=== PATIENT | female | born 1945 | race Two or more races ===

== ENCOUNTER → 2019-05-13 | Emergency (ER) | payer OTHER, MEDICAID ==
[~2019-05-13] VITALS: Ht 160 cm; Wt 59.0 kg
[2019-05-13 17:47] LABS: Basophils # (auto) 0.1 10 ^3/uL (0-0.2); Basophils % (auto) 1.6 % (0.0-2.0); Eosinophils # (auto) 0.1 10 ^3/uL (0-0.8); Eosinophils % (auto) 3.5 % (0.0-7.0); Hematocrit 29.3 % (36.0-46.0); Hemoglobin 10.3 g/dL (12.2-16.2); Lymphocytes % (auto) 23.9 % (10.0-50.0); Mean Corpuscular Hemoglobin 33.2 pg (28.0-32.0); Mean Corpuscular Volume 94.8 fL (80.0-100.0); Monocytes # (auto) 0.6 10 ^3/uL (0-1.3); Monocytes % (auto) 15.9 % (0.0-12.0); Neutrophils # (auto) 2.2 10 ^3/uL (1.6-8.6); Neutrophils % (auto) 55.1 % (37.0-80.0); Nucleated Red Blood Cells % 0.1 %; Platelet Count (auto) 135 10^3/uL (140-450); Red Blood Cells 3.09 10^6/uL (4.0-5.20); Red Cell Distribution Width 14.3 % (11.8-14.3)
[2019-05-13 18:09] LABS: Albumin 2.6 g/dL (3.4-5.0)
[2019-05-13 18:14] LABS: BUN/Creatinine Ratio 19.8; Bilirubin, Total 0.9 mg/dL (0.2-1.0)
[2019-05-13 18:41] LABS: Magnesium 2.2 mg/dL (1.6-2.6)
[2019-05-13 18:45] LABS: INR 1.23 (0.9-1.15)
[2019-05-13 19:30] VITALS: BP 132/53
== END | disposition home or self-care (01) ==
LOC: ER 15:44
DX: E11.9 Type 2 diabetes mellitus without complications (principal); D64.9 Anemia, unspecified; E78.5 Hyperlipidemia, unspecified; I10 Essential (primary) hypertension; E07.9 Disorder of thyroid, unspecified
CPT/HCPCS: 36415; 71045; 80053; 82962; 83690; 83735; 85025; 85610; 85730

== ENCOUNTER 2020-02-04 13:13 | Inpatient (IN) | payer OTHER, MEDICAID ==
[~2020-02-04] VITALS: Ht 172.7 cm; Wt 68.5 kg
[2020-02-04 14:39] LABS: Basophils # (auto) 0 10 ^3/uL (0-0.2); Basophils % (auto) 0.2 % (0.0-2.0); Eosinophils # (auto) 0 10 ^3/uL (0-0.8); Hematocrit 34.1 % (36.0-46.0); Hemoglobin 11.5 g/dL (12.2-16.2); Lymphocytes # (auto) 2.1 10 ^3/uL (0.4-5.4); Mean Corpuscular Hemoglobin 30.6 pg (28.0-32.0); Mean Corpuscular Hgb Conc. 33.8 g/dL (32.0-36.0); Mean Corpuscular Volume 90.7 fL (80.0-100.0); Monocytes % (auto) 8.7 % (0.0-12.0); Neutrophils # (auto) 8.6 10 ^3/uL (1.6-8.6); Neutrophils % (auto) 73.1 % (37.0-80.0); Nucleated Red Blood Cells % 0.2 %; Platelet Count (auto) 114 10^3/uL (140-450); Red Blood Cells 3.76 10^6/uL (4.0-5.20); Red Cell Distribution Width 15.1 % (11.8-14.3); White Blood Cell 11.8 10^3/uL (4.4-10.8)
[2020-02-04 14:48] LABS: Albumin 1.9 g/dL (3.4-5.0); BUN/Creatinine Ratio 14.9; Calcium 7.3 mg/dL (8.5-10.1); Magnesium 2.4 mg/dL (1.6-2.6)
[2020-02-04 14:52] LABS: Bilirubin, Total 2.6 mg/dL (0.2-1.0); Total Protein 6.3 g/dL (6.4-8.2)
[2020-02-04 14:58] LABS: INR 1.38 (0.9-1.15); Partial Thromboplastin Time 30.2 sec (23.0-31.2)
[2020-02-04] MEDS ORDERED: LACTULOSE 10g/15ml SOLN PR ONE (18:00)
[2020-02-04 18:38] LABS: Urine Bacteria NONE SEEN /hpf (None Seen); Urine Blood 1+ /uL (Negative); Urine Hyaline Cast FEW /lpf (0 - 2); Urine Specific Gravity 1.011 (1.001-1.035); Urine WBC 1 /hpf (0 - 5)
[2020-02-04] MEDS ORDERED: NITROGLYCERIN 0.4 MG SL TAB SL PRN (18:45)
[2020-02-04] MEDS ORDERED: MORPHINE SULF INJ 2 MG/ML SYRINGE 1ML IV PRN (18:45)
[2020-02-04] MEDS ORDERED: DEXTROSE (50%) 50ML SYRG IV PRN (19:00)
[2020-02-04] MEDS ORDERED: cefTRIAXone 1GM/50ML D5W 50 ML IV ONE (19:00)
[2020-02-04] MEDS ORDERED: ONDANSETRON HCL 4 MG/2 ML VIAL IV PRN (19:00)
[2020-02-04] MEDS ORDERED: FAMOTIDINE (10MG/ML) 2ML VL IV SCH (19:00)
[2020-02-04] MEDS: SODIUM CHLORIDE 0.9% 1,000 ML IV SCH (19:42)
[2020-02-04 19:49] LABS: Amylase 70 U/L (25-115); Lipase 232 U/L (73-393)
[2020-02-04] MEDS: InsuLIN REG 1unit/0.01ml Soln (100units/ml) SC SCH (22:00)
[2020-02-04] MEDS: ACCU-CHEK COMFORT CURVE STRIP VI SCH (22:01)
[2020-02-04] MEDS: FAMOTIDINE (10MG/ML) 2ML VL IV SCH (22:02)
[2020-02-05] MEDS: SODIUM CHLORIDE 0.9% 1,000 ML IV SCH ×2 (05:00→15:12)
[2020-02-05 05:38] LABS: Basophils # (auto) 0.1 10 ^3/uL (0-0.2); Basophils % (auto) 0.7 % (0.0-2.0); Eosinophils # (auto) 0 10 ^3/uL (0-0.8); Eosinophils % (auto) 0.1 % (0.0-7.0); Hematocrit 33.7 % (36.0-46.0); Hemoglobin 11.2 g/dL (12.2-16.2); Lymphocytes # (auto) 2.8 10 ^3/uL (0.4-5.4); Lymphocytes % (auto) 18.2 % (10.0-50.0); Mean Corpuscular Hemoglobin 30.3 pg (28.0-32.0); Mean Corpuscular Hgb Conc. 33.2 g/dL (32.0-36.0); Mean Corpuscular Volume 91.3 fL (80.0-100.0); Monocytes # (auto) 1.3 10 ^3/uL (0-1.3); Monocytes % (auto) 8.3 % (0.0-12.0); Neutrophils % (auto) 72.7 % (37.0-80.0); Nucleated Red Blood Cells % 0.2 %; Platelet Count (auto) 114 10^3/uL (140-450); Red Blood Cells 3.69 10^6/uL (4.0-5.20); Red Cell Distribution Width 15.1 % (11.8-14.3); White Blood Cell 15.2 10^3/uL (4.4-10.8)
[2020-02-05] MEDS: LACTULOSE 20Gm/30ML SOLN NG SCH ×5 (05:43→23:22)
[2020-02-05 05:56] LABS: Albumin 1.6 g/dL (3.4-5.0); Calcium 7.2 mg/dL (8.5-10.1)
[2020-02-05 06:03] LABS: BUN/Creatinine Ratio 18.3; Bilirubin, Total 2.4 mg/dL (0.2-1.0); Total Protein 5.5 g/dL (6.4-8.2)
[2020-02-05] MEDS: ACCU-CHEK COMFORT CURVE STRIP VI SCH ×4 (06:34→22:26)
[2020-02-05] MEDS: InsuLIN REG 1unit/0.01ml Soln (100units/ml) SC SCH ×5 (06:35→22:00)
[2020-02-05] MEDS: ASPirin 81 mg TAB PO SCH (10:00)
[2020-02-05 10:06] LABS: Alcohol, Urine < 3.0 mg/dL (0-10); Amphetamine Screen, Urine NEGATIVE (NEGATIVE); Barbiturate Scree,Urine NEGATIVE (NEGATIVE); Benzodiazephine Screen, Urine NEGATIVE (NEGATIVE); Cannabinoid Screen, Urine NEGATIVE (NEGATIVE); Cocaine Screen, Urine NEGATIVE (NEGATIVE); Opiate Scree,Urine NEGATIVE (NEGATIVE); Phencyclidine Screen, Urine NEGATIVE (NEGATIVE)
[2020-02-05 11:13] LABS: Cholesterol 107 mg/dL (< 200)
[2020-02-05 11:16] LABS: HDL Cholesterol 18 mg/dL (40-59); LDL Cholesterol 66 mg/dL (< 100); Triglycerides 89 mg/dL (< 150)
[2020-02-05] MEDS: cefTRIAXone 1GM/50ML D5W 50 ML IV SCH (21:00)
[2020-02-05] MEDS: FAMOTIDINE (10MG/ML) 2ML VL IV SCH (22:00)
[2020-02-05] MEDS: rifAXIMin 550 MG TAB PO SCH (22:00)
[2020-02-06] MEDS: SODIUM CHLORIDE 0.9% 1,000 ML IV SCH ×3 (01:07→22:08)
[2020-02-06] MEDS: LACTULOSE 20Gm/30ML SOLN NG SCH ×4 (06:00→23:22)
[2020-02-06] MEDS: InsuLIN REG 1unit/0.01ml Soln (100units/ml) SC SCH ×4 (10:19→22:00)
[2020-02-06] MEDS: rifAXIMin 550 MG TAB PO SCH ×2 (10:23→22:43)
[2020-02-06] MEDS: ASPirin 81 mg TAB PO SCH (10:23)
[2020-02-06] MEDS: ACCU-CHEK COMFORT CURVE STRIP VI SCH ×4 (10:23→22:10)
--- NOTE | 2020-02-06 15:30 | NUR ---
MS admit from ER JONY BEARD admitted to tele/MS after SBAR received from CHALO Brunson. Patient oriented to LETTY SALINAS RN primary RN, unit, room, bed, and unit policies regarding patient care and visiting hours. Patient weighed by bedscale and encouraged to call if they need something. Patient alert to self only, history received from Daughter Jerri via telephone. NGT in place left nare for medication purposes, wilde in place and free of kinks, hung to gravity, clear janie urine noted. Bed in low locked position, call light within reach, side rails up times two. Will continue to monitor.
[2020-02-06 16:00] VITALS: BP 106/53
[2020-02-06] MEDS ORDERED: LISI-648 PO (18:49)
[2020-02-06] MEDS ORDERED: LEVO100I IV (18:49)
[2020-02-06] MEDS ORDERED: INSU75IN2 SC (18:49)
[2020-02-06] MEDS ORDERED: LACT10SO3 PO (18:49)
[2020-02-06] MEDS ORDERED: FURO20TA3 PO (18:49)
[2020-02-06] MEDS ORDERED: DONE10TA40 PO (18:49)
--- NOTE | 2020-02-06 19:55 | NUR ---
Opening Shift Note Assumed care of patient, patient open eyes to light stimuli, oriented to self. On room air with even and unlabored respirations. No S/S of distress/SOB. left NGT intact. Sanchez intact and draining to gravity. Bed in low locked position with side rails up x 2 and call light within reach, bed alarm on. Instructed on POC and to call for assist PRN, will continue to monitor for changes Q1hr and PRN.
[2020-02-06 22:00] VITALS: BP 104/79
[2020-02-06] MEDS: cefTRIAXone 1GM/50ML D5W 50 ML IV SCH (22:08)
[2020-02-06] MEDS: FAMOTIDINE (10MG/ML) 2ML VL IV SCH (22:08)
[2020-02-06] MEDS: MORPHINE SULF INJ 2 MG/ML SYRINGE 1ML IV PRN (22:44)
[2020-02-07 05:00] VITALS: BP 115/65
[2020-02-07 06:22] LABS: Basophils # (auto) 0 10 ^3/uL (0-0.2); Basophils % (auto) 0.4 % (0.0-2.0); Eosinophils # (auto) 0 10 ^3/uL (0-0.8); Eosinophils % (auto) 0.5 % (0.0-7.0); Hematocrit 27.3 % (36.0-46.0); Lymphocytes # (auto) 1.2 10 ^3/uL (0.4-5.4); Lymphocytes % (auto) 14.9 % (10.0-50.0); Mean Corpuscular Hemoglobin 30.7 pg (28.0-32.0); Mean Corpuscular Volume 93.1 fL (80.0-100.0); Monocytes # (auto) 0.8 10 ^3/uL (0-1.3); Monocytes % (auto) 9.5 % (0.0-12.0); Neutrophils # (auto) 6.2 10 ^3/uL (1.6-8.6); Neutrophils % (auto) 74.7 % (37.0-80.0); Nucleated Red Blood Cells % 0.1 %; Platelet Count (auto) 116 10^3/uL (140-450); Red Blood Cells 2.94 10^6/uL (4.0-5.20); Red Cell Distribution Width 16.7 % (11.8-14.3); White Blood Cell 8.3 10^3/uL (4.4-10.8)
[2020-02-07 06:27] LABS: Potassium 3.9 mmol/L (3.5-5.1)
[2020-02-07 06:32] LABS: Albumin 1.5 g/dL (3.4-5.0); BUN/Creatinine Ratio 23.2; Bilirubin, Total 2.1 mg/dL (0.2-1.0); Calcium 7.2 mg/dL (8.5-10.1)
[2020-02-07] MEDS: ACCU-CHEK COMFORT CURVE STRIP VI SCH ×4 (06:37→21:32)
[2020-02-07] MEDS: InsuLIN REG 1unit/0.01ml Soln (100units/ml) SC SCH ×4 (06:38→22:00)
[2020-02-07] MEDS: LACTULOSE 20Gm/30ML SOLN NG SCH ×3 (06:39→17:50)
[2020-02-07] MEDS: SODIUM CHLORIDE 0.9% 1,000 ML IV SCH ×2 (07:00→15:45)
--- NOTE | 2020-02-07 07:00 | NUR ---
Closing Note patient resting with eyes closed, room air, no s/s of distress. ngt secured and intact. IVF infusing per orders. bed low locked position with siderails up x 2 and call light within reach.
--- NOTE | 2020-02-07 07:20 | NUR ---
OPENING SHIFT NOTE Assumed care of patient from mason liner RN. Patient is alert and oriented x1, repeating her name, She was oriented to place time and situation. She was also updated on the plan of care and verbalized understanding. Bed is locked, in the lowest position, side rails up x2 and call light is in reach. She was encouraged to call for assistance. Will round q1h and prn.
--- NOTE | 2020-02-07 07:30 | NUR ---
Endorsed care to tolu ISABEL.
[2020-02-07 09:00] VITALS: BP 112/48
--- NOTE | 2020-02-07 10:04 | NUR ---
STEPHEN AT BEDSIDE updated on the patient status, plan of care was discussed. Per MD he will place neuro consult for patient ALOC.
[2020-02-07] MEDS: rifAXIMin 550 MG TAB PO SCH ×2 (10:21→23:11)
[2020-02-07] MEDS: ASPirin 81 mg TAB PO SCH (10:21)
--- NOTE | 2020-02-07 12:24 | NUR ---
CALL FROM FAMILY after verification of password, daughter was updated on the plan of care and the patient status and she verbalized understanding. All questions answered.
[2020-02-07 13:00] VITALS: BP 102/57
--- NOTE | 2020-02-07 13:53 | NUR ---
Assessment Patient is a 74 year old female, who is alert and oriented. Patient was unable to participate in assessment. SW contacted daughter for initial assessment. Per daughter Jerri ([phone]), prior to being admitted to [facility], patient is alert and oriented. Per Jerri, patient cognitive abilities are intact. Per Jerri, patient need assistance with all ADL's and ambulate with a walker. Per [place], patient is retired and receives social security benefits as income. Per Jerri, patient is a diabetic. Per Jerri, patient has Advance Directive forms filed at [facility]. Per Jerri, she is requesting bedside commode for patient post discharge. Discharge Planning: Patient would benefit from DME supply of bedside commode. Patient will return home post discharge, patient will follow up care with PCP post discharge. Patient will resume home care for diabetes, patient has all diabetic supplies for home care post discharge. There are Addendum: 02/07/20 at 1401 by KAREN [place] Amended: Links added.
[2020-02-07] MEDS: MORPHINE SULF INJ 2 MG/ML SYRINGE 1ML IV PRN (16:38)
[2020-02-07 17:00] VITALS: BP 125/57
--- NOTE | 2020-02-07 17:48 | NUR ---
CALL FROM FAMILY after verification of password, daughter was updated on the plan of care and the patient status and she verbalized understanding. All questions answered.
--- NOTE | 2020-02-07 19:50 | NUR ---
Opening Shift Note Assumed care of patient,patient oriented to self and place. On room air with even and unlabored respirations. No S/S of distress/SOB. left NGT intact. Sanchez intact and draining to gravity. Bed in low locked position with side rails up x 2 and call light within reach, bed alarm on. Instructed on POC and to call for assist PRN, will continue to monitor for changes Q1hr and PRN.
--- NOTE | 2020-02-07 21:05 | NUR ---
Large BM patient had large loose brown liquid bowel movement. Cleaned patient and full linen change.
[2020-02-07 22:03] VITALS: BP 119/71
--- NOTE | 2020-02-07 22:15 | NUR ---
Unsuccessful IV start x 2 will have secondary RN attempt.
--- NOTE | 2020-02-07 23:10 | NUR ---
Unsuccessful IV start x 2 secondary RN attempted IV insertion, unsuccessful. grass farmer Rose will attempt.
--- NOTE | 2020-02-07 23:45 | NUR ---
IV insertion IV access obtained, via clean sterile technique by inserting 22 gauge catheter at right FA after 2 attempt(s). IV secured properly. No trauma to site. Patient tolerated well. NOTE:
[2020-02-07] MEDS: cefTRIAXone 1GM/50ML D5W 50 ML IV SCH (23:48)
[2020-02-07] MEDS: FAMOTIDINE (10MG/ML) 2ML VL IV SCH (23:48)
[2020-02-08] MEDS: LACTULOSE 20Gm/30ML SOLN NG SCH ×5 (00:03→23:16)
[2020-02-08] MEDS: MORPHINE SULF INJ 2 MG/ML SYRINGE 1ML IV PRN ×3 (00:05→22:56)
--- NOTE | 2020-02-08 00:20 | NUR ---
Large BM patient had large loose brown liquid bowel movement. Cleaned patient and full linen change.
[2020-02-08] MEDS: SODIUM CHLORIDE 0.9% 1,000 ML IV SCH ×3 (04:33→23:00)
--- NOTE | 2020-02-08 05:30 | NUR ---
Large BM patient had large loose brown liquid bowel movement. Cleaned patient, barrier cream applied and full linen change.
[2020-02-08 05:43] VITALS: BP 126/72
[2020-02-08] MEDS: ACCU-CHEK COMFORT CURVE STRIP VI SCH ×4 (06:04→21:21)
[2020-02-08] MEDS: InsuLIN REG 1unit/0.01ml Soln (100units/ml) SC SCH ×4 (06:05→21:24)
--- NOTE | 2020-02-08 07:00 | NUR ---
Closing Note patient resting with eyes closed, room air, no s/s of distress. ngt secured and intact. IVF infusing per orders. bed low locked position with side rails up x 2 and call light within reach.
[2020-02-08 08:33] VITALS: BP 133/65
[2020-02-08] MEDS: ASPirin 81 mg TAB PO SCH (10:05)
[2020-02-08] MEDS: rifAXIMin 550 MG TAB PO SCH ×2 (10:05→21:21)
[2020-02-08 11:53] LABS: Albumin 1.7 g/dL (3.4-5.0); Calcium 7.5 mg/dL (8.5-10.1); Potassium 3.3 mmol/L (3.5-5.1)
[2020-02-08 11:57] LABS: BUN/Creatinine Ratio 20.9; Bilirubin, Total 2.6 mg/dL (0.2-1.0); Total Protein 5.8 g/dL (6.4-8.2)
[2020-02-08 12:33] VITALS: BP 125/63
--- NOTE | 2020-02-08 13:23 | NUR ---
PT OOB TO CHAIR WITH PHYSICAL THERAPY. ALERT TO SELF ONLY. DAUGHTER ALESIA CALLED FACILITY REGARDING ANGIOGRAM FOR PT. KRYS MARIA, CENTER HOLE REAMER AWARE, STATED SHE WILL CALL ALESIA.
--- NOTE | 2020-02-08 14:33 | NUR ---
Nutrition Assessment Note Please see attached link for complete assessment Est energy needs BW 63 [id number] kcal (25-30 kcal/kg BW) Est protein needs 38-50 g (0.6-0.8 g/kg BW r/t elev ammonia elev RFT hypoalb) Will monitor and reassess prn. Addendum: 02/08/20 at [address] Amended: Links added.
[2020-02-08] MEDS ORDERED: POTASSIUM CHLORIDE 40 MEQ, LIDOCAINE 1% (LOCAL ANESTH.) 4 ML in SODIUM CHL 0.9% 250 ML IV ONE (16:00)
[2020-02-08 16:30] VITALS: BP 120/50
--- NOTE | 2020-02-08 18:45 | NUR ---
PT DAUGHTER ALESIA GAVE TELEPHONE CONSENT FOR LEFT HEART CATH TOMORROW 02/09/2020. MYSELF AND RN MONTY DEE HEARD AND SIGNED CONSENT.
--- NOTE | 2020-02-08 19:30 | NUR ---
Opening Shift Note Assumed care of patient, AOX2. No S/S of distress/SOB or pain. Fall and safety precautions in place. Call light within reach. NG tube to left nare at 59 cm. Instructed on POC and to call for assist PRN, patient verbalized understanding and in agreement. Will continue to monitor for changes Q1hr and PRN.
[2020-02-08] MEDS: cefTRIAXone 1GM/50ML D5W 50 ML IV SCH (21:20)
[2020-02-08] MEDS: FAMOTIDINE (10MG/ML) 2ML VL IV SCH (21:21)
--- NOTE | 2020-02-08 21:54 | NUR ---
ON-CALL HOSP PAGED - NG PULLED UPON PATIENT ROUNDS, PATIENT IS FOUND WITH NG TUBE COMPLETELY REMOVED FROM PATIENT (LINE FULLY INTACT). NO APPARENT/REPORTED TRAUMA TO PATIENT. PATIENT STATES REMOVAL WAS AN ACCIDENT. ON-CALL HOSP PAGED. AWAITING CALL BACK. WILL CONTINUE TO MONITOR.
[2020-02-08 22:00] VITALS: BP 102/72
--- NOTE | 2020-02-08 23:19 | NUR ---
PAGED HOSP - SECOND ATTEMPT ON-CALL HOSP PAGED AGAIN AT THIS TIME. AWAITING CALL BACK. WILL CONTINUE TO MONITOR.
--- NOTE | 2020-02-08 23:28 | NUR ---
ON-CALL HOSP CALL BACK ON-CALL HOSP CALLS BACK AT THIS TIME. UPDATED BACTERIOLOGY TEACHER ON PATIENT STATUS. NEW ORDERS RECEIVED, READ BACK AND VERIFIED (SEE NEW ORDERS). ADDITIONAL NOTE ON COMMUNICATION ORDER: BACTERIOLOGY TEACHER STATED NOT TO REINSERT NG TUBE AT THIS TIME UNLESS INDICATED OR MORNING HOSPITALIST DECIDES TO ORDER NG REINSERTION. WILL CONTINUE TO MONITOR. Addendum: 02/08/20 at 2337 by MELINDA NICHOLE RN RN ADDITIONALLY, NOTIFIED BACTERIOLOGY TEACHER OF PATIENT'S REPORTED PAIN ON LEFT SIDE OF ABDOMEN.
[2020-02-09 05:00] VITALS: BP 129/69
--- NOTE | 2020-02-09 05:30 | NUR ---
CHG / COMPLETE LINEN CHANGE WITH PATIENT'S CONSENT AFTER EDUCATION/INDICATION FOR PROCEDURE, CHG BATH PERFORMED AT THIS TIME. KINSEY CARE PERFORMED. FULL LINEN CHANGED. PATIENT TOLERATED WELL. WILL CONTINUE TO MONITOR.
[2020-02-09] MEDS: LACTULOSE 20Gm/30ML SOLN PO SCH ×3 (05:50→17:47)
[2020-02-09] MEDS: SODIUM CHLORIDE 0.9% 1,000 ML IV SCH ×2 (06:00→17:39)
[2020-02-09] MEDS: ACCU-CHEK COMFORT CURVE STRIP VI SCH ×4 (06:00→23:10)
[2020-02-09] MEDS: InsuLIN REG 1unit/0.01ml Soln (100units/ml) SC SCH ×4 (06:02→23:11)
[2020-02-09 06:32] LABS: Basophils # (auto) 0 10 ^3/uL (0-0.2); Basophils % (auto) 0.2 % (0.0-2.0); Eosinophils # (auto) 0.1 10 ^3/uL (0-0.8); Eosinophils % (auto) 1.4 % (0.0-7.0); Hemoglobin 9.3 g/dL (12.2-16.2); Lymphocytes # (auto) 1.3 10 ^3/uL (0.4-5.4); Lymphocytes % (auto) 19.6 % (10.0-50.0); Mean Corpuscular Hemoglobin 31.2 pg (28.0-32.0); Mean Corpuscular Hgb Conc. 33.2 g/dL (32.0-36.0); Mean Corpuscular Volume 93.9 fL (80.0-100.0); Monocytes # (auto) 0.6 10 ^3/uL (0-1.3); Neutrophils # (auto) 4.6 10 ^3/uL (1.6-8.6); Neutrophils % (auto) 69.8 % (37.0-80.0); Nucleated Red Blood Cells % 0.2 %; Platelet Count (auto) 130 10^3/uL (140-450); Red Blood Cells 2.98 10^6/uL (4.0-5.20); Red Cell Distribution Width 17.5 % (11.8-14.3); White Blood Cell 6.6 10^3/uL (4.4-10.8)
[2020-02-09 06:41] LABS: Potassium 3.9 mmol/L (3.5-5.1)
[2020-02-09 06:44] LABS: INR 1.89 (0.9-1.15); Partial Thromboplastin Time 33.4 sec (23.0-31.2)
[2020-02-09 06:55] LABS: BUN/Creatinine Ratio 24.2; Calcium 7.9 mg/dL (8.5-10.1)
[2020-02-09 09:00] VITALS: BP 112/55
[2020-02-09] MEDS: ASPirin 81 mg TAB PO SCH (09:13)
[2020-02-09] MEDS: rifAXIMin 550 MG TAB PO SCH ×2 (09:14→23:10)
--- NOTE | 2020-02-09 10:45 | NUR ---
Patient transported to open hearth laborer by bed; chart with pt; report given to open hearth laborer RN.
--- NOTE | 2020-02-09 11:30 | NUR ---
Hold P.T. today. Patient went to laborer [facility].
[2020-02-09] MEDS ORDERED: LIDOCAINE 2%HCL (LOCAL ANESTH.) INJ 20ML MDV ONE (13:01)
[2020-02-09] MEDS ORDERED: IODIXANOL 320MG/ML 100ML BTL IV ONE ×2 (13:01→13:29)
[2020-02-09] MEDS ORDERED: MIDAZOLAM HCL 1MG/1ML-2 ML VIAL ONE (13:28)
[2020-02-09] MEDS ORDERED: HEPARIN SODIUM (PORCINE) 5000 UNITS/ML 1ML VIAL ONE (13:28)
[2020-02-09] MEDS ORDERED: ANGIOMAX 250 MG VIAL IV ONE (13:28)
[2020-02-09] MEDS ORDERED: SODIUM CHL 0.9% 0 ML ONE (13:28)
[2020-02-09] MEDS ORDERED: fentaNYL CITRATE 100 MCG/2 ML VL ONE (13:28)
[2020-02-09] MEDS ORDERED: VERAPAMIL 2.5MG/ML INJ 2ML VIAL IV ONE (13:28)
--- NOTE | 2020-02-09 14:20 | NUR ---
Pt. received in Pattern Wheel Maker Post-Op awake but drowsy, awakens easily and is oriented to person, place and event. Respirations even and unlabored. RIGHT groin soft with no hematoma or bleeding noted, dressing is CDI. Moves all extremities spontaneously but keeps RIGHT and LEFT legs straight, as instructed. Bilat. pedal pulses palpable @ DP and PT. NDS lock IV to RIGHT AC intact; site benign. Pt. instructed re: procedure outcome and plan of care; verbalized understanding and is compliant. Currently denies discomfort, NAD noted.
--- NOTE | 2020-02-09 14:33 | NUR ---
Bilat. groin sites unchanged. Pt. asleep but arousable. Keeps legs straight as instructed. Addendum: 02/09/20 at 1525 by TOVA EDGAR RN RIGHT groin site (not bilateral).
--- NOTE | 2020-02-09 14:45 | NUR ---
Garrick. groin site dressings CDI with no hematomas noted. Bilateral pedal pulses unchanged. Addendum: 02/09/20 at 1525 by TOVA EDGAR RN RIGHT groin site (not bilateral).
--- NOTE | 2020-02-09 15:06 | NUR ---
Pt. asleep with even and deep respirations. Bilat. groin sites benign; legs remain straight. NAD noted. Addendum: 02/09/20 at 1526 by TOVA EDGAR RN RIGHT groin site (not bilateral).
--- NOTE | 2020-02-09 15:13 | NUR ---
SBAR report given to CHALO Cutler.
--- NOTE | 2020-02-09 15:22 | NUR ---
P.t transferred in stable condition back to room with assist by CHALO Garrett. Pt. endorsed to CHALO Cutler
[2020-02-09 17:26] VITALS: BP 104/62
--- NOTE | 2020-02-09 19:02 | NUR ---
Pt cleaned from incont. bowel episode and received catheter cares. Groin dressing replaced and reinforced.
[2020-02-09 22:00] VITALS: BP 114/54
[2020-02-09] MEDS: cefTRIAXone 1GM/50ML D5W 50 ML IV SCH (23:08)
[2020-02-09] MEDS: FAMOTIDINE (10MG/ML) 2ML VL IV SCH (23:09)
[2020-02-09] MEDS: SODIUM CHLOR 0.9% PF (SALINE LOCK) 10ML VIAL/SYR IV SCH (23:09)
[2020-02-09] MEDS: CARVEDILOL 3.125 MG TAB PO SCH (23:10)
[2020-02-10] MEDS: LACTULOSE 20Gm/30ML SOLN PO SCH ×4 (00:38→18:19)
[2020-02-10 05:00] VITALS: BP 127/61
[2020-02-10] MEDS: SODIUM CHLORIDE 0.9% 1,000 ML IV SCH ×2 (05:48→15:00)
[2020-02-10] MEDS: SODIUM CHLOR 0.9% PF (SALINE LOCK) 10ML VIAL/SYR IV SCH ×3 (05:49→23:12)
[2020-02-10] MEDS: ACCU-CHEK COMFORT CURVE STRIP VI SCH ×4 (06:09→23:17)
[2020-02-10] MEDS: InsuLIN REG 1unit/0.01ml Soln (100units/ml) SC SCH ×4 (06:12→23:19)
[2020-02-10 09:00] VITALS: BP 106/57
[2020-02-10] MEDS: rifAXIMin 550 MG TAB PO SCH ×2 (09:02→23:15)
[2020-02-10] MEDS: ASPirin 81 mg TAB PO SCH (09:02)
--- NOTE | 2020-02-10 09:50 | NUR ---
Patient transported by jennifer to MRI by radiology staff. Addendum: 02/10/20 at 1006 by JAXON REBOLLEDO RN RN Report given to MRI staff/transport team.
[2020-02-10] MEDS ORDERED: FUROSEMIDE 40 MG TAB PO ONE (11:15)
[2020-02-10] MEDS ORDERED: POTASSIUM CHL 10 Meq TABLET PO ONE (11:15)
--- NOTE | 2020-02-10 11:30 | NUR ---
PT department notified of patient need for ambulation today per Dr Tamayo. PT to assess patient ability with walker.
[2020-02-10] MEDS: CARVEDILOL 3.125 MG TAB PO SCH ×2 (11:34→23:14)
[2020-02-10 13:00] VITALS: BP 101/57
[2020-02-10 15:38] LABS: Calcium 7.4 mg/dL (8.5-10.1); Potassium 3.8 mmol/L (3.5-5.1)
[2020-02-10 15:47] LABS: BUN/Creatinine Ratio 24.4
[2020-02-10 16:44] LABS: Basophils # (auto) 0 10 ^3/uL (0-0.2); Basophils % (auto) 0.6 % (0.0-2.0); Eosinophils # (auto) 0.1 10 ^3/uL (0-0.8); Eosinophils % (auto) 2.3 % (0.0-7.0); Hematocrit 26.6 % (36.0-46.0); Hemoglobin 8.8 g/dL (12.2-16.2); Lymphocytes # (auto) 1.1 10 ^3/uL (0.4-5.4); Lymphocytes % (auto) 21.1 % (10.0-50.0); Mean Corpuscular Hemoglobin 31.8 pg (28.0-32.0); Mean Corpuscular Volume 96.6 fL (80.0-100.0); Monocytes # (auto) 0.4 10 ^3/uL (0-1.3); Monocytes % (auto) 7.8 % (0.0-12.0); Neutrophils # (auto) 3.5 10 ^3/uL (1.6-8.6); Neutrophils % (auto) 68.2 % (37.0-80.0); Nucleated Red Blood Cells % 0.6 %; Platelet Count (auto) 99 10^3/uL (140-450); Red Blood Cells 2.76 10^6/uL (4.0-5.20); Red Cell Distribution Width 19.2 % (11.8-14.3); White Blood Cell 5.2 10^3/uL (4.4-10.8)
[2020-02-10 17:00] VITALS: BP 106/55
[2020-02-10 22:00] VITALS: BP 97/58
[2020-02-10] MEDS: cefTRIAXone 1GM/50ML D5W 50 ML IV SCH (23:11)
[2020-02-10] MEDS: FAMOTIDINE (10MG/ML) 2ML VL IV SCH (23:12)
[2020-02-11] MEDS: SODIUM CHLORIDE 0.9% 1,000 ML IV SCH ×3 (01:00→21:12)
[2020-02-11 05:00] VITALS: BP 104/54
[2020-02-11] MEDS: LACTULOSE 20Gm/30ML SOLN PO SCH ×4 (06:44→18:00)
[2020-02-11] MEDS: SODIUM CHLOR 0.9% PF (SALINE LOCK) 10ML VIAL/SYR IV SCH ×3 (06:44→21:13)
[2020-02-11] MEDS: ACCU-CHEK COMFORT CURVE STRIP VI SCH ×4 (06:45→21:26)
[2020-02-11] MEDS: InsuLIN REG 1unit/0.01ml Soln (100units/ml) SC SCH ×4 (06:46→21:25)
[2020-02-11 08:00] VITALS: BP 97/58
[2020-02-11 09:00] VITALS: BP 109/51
[2020-02-11] MEDS: ASPirin 81 mg TAB PO SCH (10:13)
[2020-02-11] MEDS: POTASSIUM CHL 10 Meq TABLET PO SCH (10:16)
[2020-02-11] MEDS: FUROSEMIDE 40 MG TAB PO SCH (10:16)
[2020-02-11] MEDS: CARVEDILOL 3.125 MG TAB PO SCH ×2 (10:16→22:00)
[2020-02-11] MEDS: rifAXIMin 550 MG TAB PO SCH ×2 (10:17→22:26)
[2020-02-11] MEDS ORDERED: SPIRONOLACTONE 25 MG TAB PO ONE (12:45)
[2020-02-11 13:00] VITALS: BP 99/44
--- NOTE | 2020-02-11 15:16 | NUR ---
Nutrition Followup Notes Pt wt is 68.2 kg/m2 Pt was awake alert when rounded this morning. Pt is weak but doing better. Pt is with a CCHO 45g diet, appetite is fair aeb ave 69% x 4 PO intake per RN doc. Est energy needs BW 63 [id number] kcal (25-30 kcal/kg BW) Est protein needs 38-50 g (0.6-0.8 g/kg BW r/t elev ammonia elev RFT hypoalb) Will monitor and reassess prn. LABS: GLUC 145 H, BUN 29 H, CREAT 1.19 H, CA 7.4 L, ALB 1.7 L GI: Pt is with diarrhea today per RN doc BS: 12 high risk. Prefer to wound assessment report for further details PES: Altered nutrition relate dlab values r.t curent chronic medical condition aeb elev RFT ammonia hyperglycemia, severe hypoalb Comments Will continue to monitor PO status, skin status, pertinent labs and weight trends. Will f/u in 3-5 days 1) consider hepatic diet 50 gm protein 2 gm Na along with current diet 2) refer to CDE on dc 3) consider Prostat 1 packet bid as RFT and ammonia improve 4) consider Glucerna 1 carton bid if PO is low 5) continue current plan of care
[2020-02-11 17:00] VITALS: BP 103/36
[2020-02-11] MEDS: MORPHINE SULF INJ 2 MG/ML SYRINGE 1ML IV PRN (17:40)
[2020-02-11] MEDS: SPIRONOLACTONE 25 MG TAB PO SCH (18:12)
--- NOTE | 2020-02-11 19:00 | NUR ---
OPENING NOTE- NOC SHIFT RECEIVED REPORT FROM DAY SHIFT RN. PATIENT IS COMFORTABLE IN BED. PATIENT IS ALERT AND ORIENTED X4 AND ANSWERS IN COMPLETE SENTENCES. BED IS LOCKED AT LOWEST POSITION. BED RAILS UP X2 AND HEAD OF BED IS UP >30 DEGREES. BEDSIDE TABLE WITHIN REACH, CALL LIGHT WITHIN REACH. DISCUSSED POC WITH PATIENT AND INSTRUCTED PATIENT TO CALL PRN; PATIENT VERBALIZED UNDERSTANDING. WILL CONTINUE TO MONITOR Q1H AND PRN.
--- NOTE | 2020-02-11 20:00 | NUR ---
CALL FROM DAUGHTER SABRINA LAWSON UPDATED WITH PATIENT STATUS AFTER VERIFYING ACCOUNT PASSWORD. CALL TRANSFERRED TO PATIENT ROOM.
[2020-02-11] MEDS: cefTRIAXone 1GM/50ML D5W 50 ML IV SCH (21:13)
[2020-02-11] MEDS: FAMOTIDINE (10MG/ML) 2ML VL IV SCH (21:13)
[2020-02-11 22:00] VITALS: BP 116/45
[2020-02-11 22:44] LABS: Potassium 4.2 mmol/L (3.5-5.1)
[2020-02-11 22:53] LABS: Albumin 1.3 g/dL (3.4-5.0); BUN/Creatinine Ratio 20.7; Calcium 7.3 mg/dL (8.5-10.1); Total Protein 4.6 g/dL (6.4-8.2)
[2020-02-11 23:54] LABS: Basophils # (auto) 0 10 ^3/uL (0-0.2); Basophils % (auto) 0.6 % (0.0-2.0); Eosinophils # (auto) 0 10 ^3/uL (0-0.8); Eosinophils % (auto) 0.3 % (0.0-7.0); Hematocrit 26.9 % (36.0-46.0); Lymphocytes # (auto) 1.1 10 ^3/uL (0.4-5.4); Mean Corpuscular Hemoglobin 31.4 pg (28.0-32.0); Mean Corpuscular Hgb Conc. 33.4 g/dL (32.0-36.0); Mean Corpuscular Volume 94.2 fL (80.0-100.0); Monocytes # (auto) 0.3 10 ^3/uL (0-1.3); Monocytes % (auto) 5.4 % (0.0-12.0); Neutrophils # (auto) 3.5 10 ^3/uL (1.6-8.6); Neutrophils % (auto) 70.7 % (37.0-80.0); Nucleated Red Blood Cells % 0.2 %; Platelet Count (auto) 89 10^3/uL (140-450); Red Blood Cells 2.86 10^6/uL (4.0-5.20); White Blood Cell 4.9 10^3/uL (4.4-10.8)
[2020-02-12 05:00] VITALS: BP 122/58
[2020-02-12] MEDS: LACTULOSE 20Gm/30ML SOLN PO SCH ×4 (06:00→18:00)
[2020-02-12] MEDS: SPIRONOLACTONE 25 MG TAB PO SCH ×2 (06:00→19:00)
[2020-02-12] MEDS: SODIUM CHLOR 0.9% PF (SALINE LOCK) 10ML VIAL/SYR IV SCH ×2 (06:19→14:00)
[2020-02-12] MEDS: SODIUM CHLORIDE 0.9% 1,000 ML IV SCH ×2 (06:19→17:00)
--- NOTE | 2020-02-12 06:30 | NUR ---
LAB AT BEDSIDE
[2020-02-12] MEDS: ACCU-CHEK COMFORT CURVE STRIP VI SCH ×3 (06:52→19:01)
[2020-02-12] MEDS: InsuLIN REG 1unit/0.01ml Soln (100units/ml) SC SCH ×2 (06:52→11:30)
[2020-02-12 07:07] LABS: Basophils # (auto) 0.1 10 ^3/uL (0-0.2); Basophils % (auto) 0.7 % (0.0-2.0); Eosinophils # (auto) 0.1 10 ^3/uL (0-0.8); Eosinophils % (auto) 0.7 % (0.0-7.0); Hematocrit 30.2 % (36.0-46.0); Hemoglobin 10.1 g/dL (12.2-16.2); Lymphocytes # (auto) 1.3 10 ^3/uL (0.4-5.4); Lymphocytes % (auto) 15.5 % (10.0-50.0); Mean Corpuscular Hemoglobin 31.3 pg (28.0-32.0); Mean Corpuscular Hgb Conc. 33.5 g/dL (32.0-36.0); Mean Corpuscular Volume 93.5 fL (80.0-100.0); Monocytes # (auto) 0.4 10 ^3/uL (0-1.3); Monocytes % (auto) 5.1 % (0.0-12.0); Neutrophils # (auto) 6.3 10 ^3/uL (1.6-8.6); Nucleated Red Blood Cells % 0.3 %; Platelet Count (auto) 96 10^3/uL (140-450); Red Blood Cells 3.22 10^6/uL (4.0-5.20); White Blood Cell 8.1 10^3/uL (4.4-10.8)
--- NOTE | 2020-02-12 07:10 | NUR ---
CLOSING NOTE- NOC SHIFT ENDORSED PATIENT CARE TO DAY SHIFT NURSE OBIE ISABEL. PATIENT IS COMFORTABLE IN BED. NO S/SX OF DISTRESS, SOB OR PAIN.
[2020-02-12 07:18] LABS: Albumin 1.4 g/dL (3.4-5.0); Calcium 7.5 mg/dL (8.5-10.1); Potassium 4.2 mmol/L (3.5-5.1)
[2020-02-12 07:20] LABS: BUN/Creatinine Ratio 20.4; Total Protein 4.8 g/dL (6.4-8.2)
--- NOTE | 2020-02-12 07:50 | NUR ---
Opening Shift Note Assumed care of patient, asleep but easily aroused. No S/S of distress/SOB or pain. Instructed on POC and to call for assist PRN, will continue to monitor for changes Q1hr and PRN.
[2020-02-12] MEDS: rifAXIMin 550 MG TAB PO SCH (09:12)
[2020-02-12] MEDS: ASPirin 81 mg TAB PO SCH (09:12)
[2020-02-12] MEDS: POTASSIUM CHL 10 Meq TABLET PO SCH (09:13)
[2020-02-12] MEDS: FUROSEMIDE 40 MG TAB PO SCH (09:15)
[2020-02-12] MEDS: CARVEDILOL 3.125 MG TAB PO SCH (09:16)
--- NOTE | 2020-02-12 09:55 | NUR ---
Hospitalist Rounded Dr. Champion at bedside.
--- NOTE | 2020-02-12 11:30 | NUR ---
Discharge Patient is discharged for home with home health. MD is aware that home health may not be arranged today. As per Dr. Chapmion, do not hold discharge for home health or DME. Patient may go home while home health is being arranged.
--- NOTE | 2020-02-12 16:29 | NUR ---
D/C planning Regarding social service consult for home health safety evaluation, safety evaluation and a bedside commode. SPARKLE Nunes will contact health [facility] for home health service. Faxed clinical information to [facility] for the bedside commode requesting for it to be deliver to the front lobby. Per Kimberly with [facility] bedside commode will be deliver to the front lobby by 6:30. Informed CHALO Browne.
[2020-02-12 18:43] VITALS: BP 102/54
--- NOTE | 2020-02-12 19:07 | NUR ---
DME DME not yet delivered, family want to transport patient home and pickling drum operator DME in the morning 12/15. Incoming RN will be notified.
--- NOTE | 2020-02-12 20:35 | NUR ---
PATIENT DISCHARGED PATIENT DISCHARGED HOME WITH [facility]. NO S/SX OF DISTRESS, SOB OR PAIN. INSTRUCTED PATIENT TO RETURN TO THE NEAREST ER OR CALL 911 IF CONDITIONS DOES NOT GET BETTER OR WORSENS. ALL DISCHARGE INSTRUCTIONS WITH PATIENT. LULU DUMAS STATED THAT PATIENT HAS DOCTOR APPOINTMENT WITH HER PRIMARY SET UP FOR TOMORROW. ALL PERSONAL BELONGINGS WITH PATIENT. ALL QUESTIONS AND CONCERNS ADDRESSED WITH LULU DUMAS AND WITH PATIENT. TELE BOX 69 SENT TO TELE MONITOR OFFICE. IV removal IV DC'd with clean sterile technique, catheter fully intact. Pressure dressing applied to site. Patient tolerated well. CARNES CATHETER REMOVED ORDERED. PATIENT TOLERATED WELL.
--- NOTE | 2020-02-13 16:02 | NUR ---
[id number] 02/13/20 Faxed to [facility] at [phone] and to [facility] at [phone] face sheet, order to arrange home health for physical therapy, medication management and home safety eval. Pending review and accepting pt for services.
== END 2020-02-12 20:35 | disposition home health service (06) | DRG 871 ==
LOC: EDSEX 13:13 → EDBD 13:13 → ER 13:13 → OVERFLOW 13:14 → TELE-WESTW 02-06 15:34 → WEST WING 02-06 17:37 → TELE-WESTW 02-08 19:46
PROVIDERS: ADMIT Internal Medicine; ATTEND Internal Medicine
PROC: 4A023N8 Measurement of Cardiac Sampling and Pressure, Bilateral, Percutaneous Approach (ICD-10-PCS; principal; 2020-02-09)
PROC: B211YZZ Fluoroscopy of Multiple Coronary Arteries using Other Contrast (ICD-10-PCS; 2020-02-09)
PROC: B215YZZ Fluoroscopy of Left Heart using Other Contrast (ICD-10-PCS; 2020-02-09)
DX: A41.9 Sepsis, unspecified organism (principal); I21.4 Non-ST elevation (NSTEMI) myocardial infarction; G93.41 Metabolic encephalopathy; I50.23 Acute on chronic systolic (congestive) heart failure; I63.9 Cerebral infarction, unspecified; D68.9 Coagulation defect, unspecified; E87.0 Hyperosmolality and hypernatremia; E44.0 Moderate protein-calorie malnutrition; I13.0 Hypertensive heart and chronic kidney disease with heart failure and stage 1 through stage 4 chronic kidney disease, or unspecified chronic kidney disease; R18.8 Other ascites; E72.20 Disorder of urea cycle metabolism, unspecified; K72.90 Hepatic failure, unspecified without coma; D69.6 Thrombocytopenia, unspecified; K74.60 Unspecified cirrhosis of liver; N18.30 Chronic kidney disease, stage 3 unspecified; E03.9 Hypothyroidism, unspecified; E11.21 Type 2 diabetes mellitus with diabetic nephropathy; E78.5 Hyperlipidemia, unspecified; E87.6 Hypokalemia; D63.8 Anemia in other chronic diseases classified elsewhere; E11.22 Type 2 diabetes mellitus with diabetic chronic kidney disease; Z20.828 Contact with and (suspected) exposure to other viral communicable diseases; I25.10 Atherosclerotic heart disease of native coronary artery without angina pectoris; I25.2 Old myocardial infarction; J32.0 Chronic maxillary sinusitis; Z79.4 Long term (current) use of insulin; Z80.3 Family history of malignant neoplasm of breast; Z82.49 Family history of ischemic heart disease and other diseases of the circulatory system; Z83.3 Family history of diabetes mellitus; Z86.73 Personal history of transient ischemic attack (TIA), and cerebral infarction without residual deficits; Z79.82 Long term (current) use of aspirin; Z90.49 Acquired absence of other specified parts of digestive tract; Z68.23 Body mass index [BMI] 23.0-23.9, adult
CPT/HCPCS: 36415; 70450; 70551; 71045; 80048; 80053; 80061; 80307; 81001; 82140; 82150; 82550; 82607; 82746; 82962; 83036; 83690; 83735; 83880; 84443; 84484; 85025; 85610; 85730; 86850; 86900; 86901; 87040; 87086; 93005; 93306; 93460; 93886; 97110; 97163; 97530; 99152; C1751; G0378; J0696; J1815; J2001; J2250; J3490; Q9967

== ENCOUNTER 2020-02-19 00:45 | Inpatient (IN) | payer OTHER, MEDICAID ==
[~2020-02-19] VITALS: Ht 160 cm; Wt 71.7 kg
[~2020-02-19 00:45] MED LIST: DONE10TA40 PO; FURO20TA3 PO; INSU75IN2 SC; LACT10SO3 PO; LEVO100I IV; LISI-648 PO
[2020-02-19 01:00] VITALS: BP 92/31
[2020-02-19] MEDS ORDERED: SODIUM BICARBONATE 8.4% INJ 50ML SYRINGE ONE ×2 (01:06→04:59)
[2020-02-19] MEDS ORDERED: VANCOMYCIN PER PHARMACY 1,000 MG IV SCH (01:15)
[2020-02-19] MEDS ORDERED: NOREPINEPHRINE 8 MG/250ML KIT 250 ML IV ONE (01:18)
[2020-02-19] MEDS ORDERED: LIDOCAINE W/ EPINEPHRINE 1% 20ML VIAL ONE (01:26)
[2020-02-19] MEDS ORDERED: VANCOMYCIN 1GM/250ML 250 ML IV ONE (01:30)
[2020-02-19] MEDS: NOREPINEPHRINE 8 MG/250ML KIT 250 ML IV SCH ×2 (01:34→05:53)
[2020-02-19] MEDS ORDERED: SODIUM CHLORIDE 0.9% 2,000 ML IV ONE (02:30)
[2020-02-19 02:55] LABS: Basophils # (auto) 0 10 ^3/uL (0-0.2); Basophils % (auto) 0.2 % (0.0-2.0); Eosinophils # (auto) 0 10 ^3/uL (0-0.8); Hemoglobin 8.6 g/dL (12.2-16.2); Mean Corpuscular Hgb Conc. 32.8 g/dL (32.0-36.0); Monocytes # (auto) 0.2 10 ^3/uL (0-1.3); Platelet Count (auto) 35 10^3/uL (140-450); White Blood Cell 8.5 10^3/uL (4.4-10.8)
[2020-02-19 02:56] LABS: Hematocrit 26.3 % (36.0-46.0); Lymphocytes # (auto) 1.2 10 ^3/uL (0.4-5.4); Mean Corpuscular Hemoglobin 32.4 pg (28.0-32.0); Mean Corpuscular Volume 98.8 fL (80.0-100.0); Neutrophils # (auto) 7.1 10 ^3/uL (1.6-8.6); Neutrophils % (auto) 83.8 % (37.0-80.0); Nucleated Red Blood Cells % 0.4 %; Red Blood Cells 2.67 10^6/uL (4.0-5.20)
[2020-02-19 02:58] LABS: Albumin 1.3 g/dL (3.4-5.0); Calcium 7.9 mg/dL (8.5-10.1); Potassium 3.9 mmol/L (3.5-5.1)
[2020-02-19 03:00] LABS: Red Cell Distribution Width 25.9 % (11.8-14.3)
[2020-02-19 03:03] LABS: BUN/Creatinine Ratio 15.9; Bilirubin, Total 1.4 mg/dL (0.2-1.0); Total Protein 4.8 g/dL (6.4-8.2)
[2020-02-19] MEDS ORDERED: DOPamine 1600MCG/ML D5W 250 ML IV ONE ×2 (03:12→03:30)
[2020-02-19 03:14] VITALS: BP 72/42
[2020-02-19 03:18] LABS: INR 1.88 (0.9-1.15); Partial Thromboplastin Time 44.1 sec (23.0-31.2)
[2020-02-19] MEDS ORDERED: SODIUM BICARBONATE 50ML VIAL 50 ML in SOD CHL 0.45% 1,000 ML IV ONE (04:30)
[2020-02-19] MEDS ORDERED: SODIUM BICARBONATE 8.4 % INJ 50ML VIAL IV ONE (04:30)
[2020-02-19 04:34] LABS: Urine Bacteria FEW /hpf (None Seen); Urine Blood 1+ /uL (Negative); Urine Hyaline Cast MANY /lpf (0 - 2); Urine Mucus FEW (None Seen); Urine Specific Gravity 1.025 (1.001-1.035); Urine WBC 3 /hpf (0 - 5)
[2020-02-19 04:59] LABS: Lactic Acid w/Reflex 3.5 mmol/L (0.4-2.0)
[2020-02-19] MEDS ORDERED: PIPERACILLIN-TAZOB 3.375GM 100 ML IV SCH (06:00)
[2020-02-19 07:22] VITALS: BP 120/88
[2020-02-19] MEDS ORDERED: ALBUTEROL SULF HFA 90MCG INH 200DOSE IN PRN (07:45)
[2020-02-19] MEDS ORDERED: NITROGLYCERIN 0.4 MG SL TAB SL PRN (07:45)
[2020-02-19] MEDS ORDERED: DEXTROSE (50%) 50ML SYRG IV PRN (07:45)
[2020-02-19] MEDS ORDERED: ACETAMINOPHEN 500 MG TAB PO PRN (07:45)
[2020-02-19] MEDS ORDERED: SODIUM CHLORIDE 0.9% 1,000 ML IV SCH (07:45)
[2020-02-19 08:07] LABS: Lactic Acid w/Reflex 3.3 mmol/L (0.4-2.0)
[2020-02-19] MEDS ORDERED: CARV6.2551 PO (09:28)
[2020-02-19] MEDS ORDERED: RIFA550T PO (09:28)
[2020-02-19] MEDS ORDERED: LEVO75TA6 PO (09:28)
[2020-02-19] MEDS ORDERED: ALBUAER3 IN (09:28)
[2020-02-19] MEDS ORDERED: SPIR25TA8 PO (09:28)
[2020-02-19] MEDS: SODIUM BICARBONATE 50ML VIAL 100 ML in SOD CHL 0.45% 1,000 ML IV SCH ×2 (09:52→21:18)
[2020-02-19] MEDS ORDERED: ZINC SULFATE 220mg CAP or TAB PO SCH (10:00)
[2020-02-19] MEDS ORDERED: CHOLECALCIFEROL (VITD3) 2,000 UNIT CAP PO SCH (10:00)
[2020-02-19] MEDS ORDERED: PANTOPRAZOLE 40 MG TAB PO SCH (10:00)
[2020-02-19] MEDS ORDERED: ASCORBIC ACID 1,000 MG TAB PO SCH (10:00)
[2020-02-19] MEDS ORDERED: ENOXAPARIN SOD 40 MG/0.4 ML SYRINGE SC SCH ×2 (10:00)
[2020-02-19] MEDS: DexAMETHasone SOD PHOS 10MG/1ML VIAL INJ IV SCH (10:10)
[2020-02-19] MEDS: BUDESONIDE (INHALATION) 180 MCG IH IN SCH ×2 (11:34→22:00)
[2020-02-19] MEDS: ACCU-CHEK COMFORT CURVE STRIP VI SCH ×3 (12:02→21:21)
[2020-02-19] MEDS: InsuLIN REG 1unit/0.01ml Soln (100units/ml) SC SCH ×3 (12:03→21:23)
[2020-02-19] MEDS: PIPERACILLIN-TAZOB 2.25GM 50 ML IV SCH ×2 (12:31→18:25)
[2020-02-19 15:05] LABS: Basophils # (auto) 0 10 ^3/uL (0-0.2); Eosinophils # (auto) 0 10 ^3/uL (0-0.8); Hematocrit 28.2 % (36.0-46.0); Lymphocytes # (auto) 0.7 10 ^3/uL (0.4-5.4); Monocytes # (auto) 0.1 10 ^3/uL (0-1.3); Monocytes % (auto) 1.6 % (0.0-12.0); Nucleated Red Blood Cells % 0.1 %
[2020-02-19 15:07] LABS: Hemoglobin 9.8 g/dL (12.2-16.2); Lymphocytes % (auto) 7.4 % (10.0-50.0); Mean Corpuscular Hemoglobin 33.7 pg (28.0-32.0); Mean Corpuscular Hgb Conc. 34.8 g/dL (32.0-36.0); Mean Corpuscular Volume 96.7 fL (80.0-100.0); Neutrophils # (auto) 8.3 10 ^3/uL (1.6-8.6); Platelet Count (auto) 30 10^3/uL (140-450); Red Blood Cells 2.91 10^6/uL (4.0-5.20); White Blood Cell 9.1 10^3/uL (4.4-10.8)
[2020-02-19 15:24] LABS: Albumin 1.4 g/dL (3.4-5.0); Calcium 7.4 mg/dL (8.5-10.1); Potassium 3.8 mmol/L (3.5-5.1)
[2020-02-19 15:28] LABS: BUN/Creatinine Ratio 17.3; Total Protein 5.1 g/dL (6.4-8.2)
[2020-02-19 15:36] LABS: Red Cell Distribution Width 25.5 % (11.8-14.3)
[2020-02-19 18:01] VITALS: BP 112/40
[2020-02-19 22:39] VITALS: BP 110/44
[2020-02-20 03:10] VITALS: BP 119/40
[2020-02-20] MEDS: PIPERACILLIN-TAZOB 2.25GM 50 ML IV SCH ×4 (06:26→18:52)
[2020-02-20] MEDS: ACCU-CHEK COMFORT CURVE STRIP VI SCH ×4 (06:27→20:42)
[2020-02-20] MEDS: InsuLIN REG 1unit/0.01ml Soln (100units/ml) SC SCH ×4 (06:27→20:42)
[2020-02-20 06:45] VITALS: BP 118/42
[2020-02-20] MEDS: BUDESONIDE (INHALATION) 180 MCG IH IN SCH ×2 (06:50→22:00)
[2020-02-20 07:47] LABS: Basophils # (auto) 0 10 ^3/uL (0-0.2); Basophils % (auto) 0.2 % (0.0-2.0); Eosinophils # (auto) 0 10 ^3/uL (0-0.8); Hemoglobin 9.1 g/dL (12.2-16.2); Monocytes # (auto) 0.3 10 ^3/uL (0-1.3); Neutrophils % (auto) 88.9 % (37.0-80.0); Nucleated Red Blood Cells % 0.2 %
[2020-02-20 07:50] LABS: Hematocrit 27.5 % (36.0-46.0); Lymphocytes % (auto) 8.4 % (10.0-50.0); Mean Corpuscular Hemoglobin 32.8 pg (28.0-32.0); Mean Corpuscular Hgb Conc. 33.1 g/dL (32.0-36.0); Mean Corpuscular Volume 99.1 fL (80.0-100.0); Monocytes % (auto) 2.5 % (0.0-12.0); Neutrophils # (auto) 10.9 10 ^3/uL (1.6-8.6); Platelet Count (auto) 62 10^3/uL (140-450); Red Blood Cells 2.77 10^6/uL (4.0-5.20); White Blood Cell 12.3 10^3/uL (4.4-10.8)
[2020-02-20 07:53] LABS: Red Cell Distribution Width 26.6 % (11.8-14.3)
[2020-02-20] MEDS: SODIUM BICARBONATE 50ML VIAL 100 ML in SOD CHL 0.45% 1,000 ML IV SCH ×2 (09:54→22:51)
[2020-02-20 10:20] VITALS: BP 131/46
[2020-02-20 10:32] LABS: Alanine Aminotransferase 40 U/L (13-56)
[2020-02-20 10:34] LABS: Sodium 140 mmol/L (136-145)
[2020-02-20 10:35] LABS: Albumin 1.3 g/dL (3.4-5.0); Alkaline Phosphatase 214 U/L (45-117); Anion Gap 7 (5-15); Aspartate Aminotransferase 74 U/L (15-37); BUN/Creatinine Ratio 18.4; Blood Urea Nitrogen 54 mg/dL (7-18); Calcium 7.1 mg/dL (8.5-10.1); Carbon Dioxide 18 mmol/L (21-32); Chloride 115 mmol/L (98-107); GFR African American 20 mL/min; GFR Non-African American 17 mL/min; Glucose 136 mg/dL (74-106); Total Protein 4.9 g/dL (6.4-8.2)
[2020-02-20 12:10] LABS: Creatinine, Urine 157 mg/dL (30.0-125.0); Protein, Urine 44.3 mg/dL (0.0-11.9); Sodium Urine < 5 mmol/L (40-220)
[2020-02-20] MEDS: DexAMETHasone SOD PHOS 10MG/1ML VIAL INJ IV SCH (14:08)
[2020-02-20] MEDS: ALBUMIN 25% 100 ML IV SCH (14:08)
[2020-02-20] MEDS: PANTOPRAZOLE 40 MG/10 ML VIAL INJ IV SCH (14:09)
[2020-02-20] MEDS ORDERED: DOPamine 1600MCG/ML D5W 250 ML IV ONE (16:28)
[2020-02-20] MEDS: DOPamine 1600MCG/ML D5W 250 ML IV SCH (16:30)
[2020-02-20 19:25] VITALS: BP 140/65
[2020-02-21] VITALS (15 sets, daily range): BP systolic 105–151; BP diastolic 46–76
[2020-02-21] MEDS: NOREPINEPHRINE 8 MG/250ML KIT 250 ML IV SCH (01:15)
[2020-02-21] MEDS: ALBUMIN 25% 100 ML IV SCH ×4 (01:25→17:46)
[2020-02-21] MEDS: PIPERACILLIN-TAZOB 2.25GM 50 ML IV SCH ×2 (06:00)
[2020-02-21] MEDS: InsuLIN REG 1unit/0.01ml Soln (100units/ml) SC SCH ×4 (07:00→21:34)
[2020-02-21] MEDS: ACCU-CHEK COMFORT CURVE STRIP VI SCH ×4 (07:03→21:33)
[2020-02-21 09:24] LABS: Basophils # (auto) 0 10 ^3/uL (0-0.2); Basophils % (auto) 0.1 % (0.0-2.0); Eosinophils # (auto) 0 10 ^3/uL (0-0.8); Lymphocytes # (auto) 0.6 10 ^3/uL (0.4-5.4); Monocytes # (auto) 0.2 10 ^3/uL (0-1.3); Monocytes % (auto) 2.3 % (0.0-12.0); Nucleated Red Blood Cells % 0.2 %
[2020-02-21 09:26] LABS: Hematocrit 19.9 % (36.0-46.0); Lymphocytes % (auto) 7.5 % (10.0-50.0); Mean Corpuscular Hemoglobin 32.6 pg (28.0-32.0); Mean Corpuscular Hgb Conc. 33.5 g/dL (32.0-36.0); Mean Corpuscular Volume 97.2 fL (80.0-100.0); Neutrophils # (auto) 6.7 10 ^3/uL (1.6-8.6); Neutrophils % (auto) 90.1 % (37.0-80.0); Red Blood Cells 2.05 10^6/uL (4.0-5.20); White Blood Cell 7.4 10^3/uL (4.4-10.8)
[2020-02-21 09:27] LABS: Red Cell Distribution Width 26.2 % (11.8-14.3)
[2020-02-21 09:41] LABS: Hemoglobin 6.7 g/dL (12.2-16.2); Platelet Count (auto) 6 10^3/uL (140-450)
[2020-02-21 09:46] LABS: Albumin 2.1 g/dL (3.4-5.0); Calcium 6.6 mg/dL (8.5-10.1); Potassium 3.8 mmol/L (3.5-5.1)
[2020-02-21 09:48] LABS: BUN/Creatinine Ratio 21.3
[2020-02-21 09:51] LABS: Bilirubin, Total 2.9 mg/dL (0.2-1.0); Total Protein 4.7 g/dL (6.4-8.2)
[2020-02-21] MEDS: DOPamine 1600MCG/ML D5W 250 ML IV SCH (10:37)
[2020-02-21] MEDS: ONDANSETRON HCL 4 MG/2 ML VIAL IV PRN (10:47)
[2020-02-21] MEDS: MORPHINE SULF INJ 2 MG/ML SYRINGE 1ML IV PRN (10:47)
[2020-02-21] MEDS: DexAMETHasone SOD PHOS 10MG/1ML VIAL INJ IV SCH ×3 (11:05→21:33)
[2020-02-21] MEDS: PANTOPRAZOLE 40 MG/10 ML VIAL INJ IV SCH (11:05)
[2020-02-21] MEDS: SODIUM BICARBONATE 50ML VIAL 100 ML in SOD CHL 0.45% 1,000 ML IV SCH (11:49)
[2020-02-21] MEDS: BUDESONIDE (INHALATION) 180 MCG IH IN SCH ×3 (12:13→22:20)
[2020-02-21] MEDS ORDERED: SODIUM BICARBONATE 50ML VIAL 100 ML in SOD CHL 0.45% 1,000 ML IV SCH (12:15)
[2020-02-21] MEDS ORDERED: FUROSEMIDE 40 MG/4 ML VIAL IV ONE (12:15)
[2020-02-21] MEDS: CEFEPIME 1 GM in SODIUM CHL 0.9% 50 ML IV SCH ×2 (18:51→21:34)
[2020-02-21] MEDS ORDERED: SODIUM BICARBONATE 8.4 % INJ 50ML VIAL IV ONE (21:13)
[2020-02-22] VITALS (9 sets, daily range): BP systolic 110–142; BP diastolic 48–62
[2020-02-22] MEDS: NOREPINEPHRINE 8 MG/250ML KIT 250 ML IV SCH (01:15)
[2020-02-22] MEDS: ALBUMIN 25% 100 ML IV SCH (01:34)
[2020-02-22 05:34] LABS: Basophils # (auto) 0 10 ^3/uL (0-0.2); Basophils % (auto) 0.1 % (0.0-2.0); Eosinophils # (auto) 0 10 ^3/uL (0-0.8); Lymphocytes # (auto) 0.4 10 ^3/uL (0.4-5.4); Neutrophils # (auto) 5.1 10 ^3/uL (1.6-8.6); Nucleated Red Blood Cells % 0.1 %; White Blood Cell 5.6 10^3/uL (4.4-10.8)
[2020-02-22 05:37] LABS: Hematocrit 23.6 % (36.0-46.0); Lymphocytes % (auto) 7.2 % (10.0-50.0); Mean Corpuscular Hemoglobin 32.6 pg (28.0-32.0); Mean Corpuscular Hgb Conc. 33.9 g/dL (32.0-36.0); Mean Corpuscular Volume 96.3 fL (80.0-100.0); Monocytes # (auto) 0.2 10 ^3/uL (0-1.3); Monocytes % (auto) 2.7 % (0.0-12.0); Red Blood Cells 2.45 10^6/uL (4.0-5.20)
[2020-02-22] MEDS: DOPamine 1600MCG/ML D5W 250 ML IV SCH (05:48)
[2020-02-22 06:01] LABS: Albumin 2.7 g/dL (3.4-5.0); BUN/Creatinine Ratio 24.2; Bilirubin, Total 4.5 mg/dL (0.2-1.0); Calcium 6.7 mg/dL (8.5-10.1)
[2020-02-22 06:08] LABS: Red Cell Distribution Width 24.2 % (11.8-14.3)
[2020-02-22 06:09] LABS: Platelet Count (auto) 12 10^3/uL (140-450)
[2020-02-22] MEDS: ACCU-CHEK COMFORT CURVE STRIP VI SCH ×4 (06:28→21:55)
[2020-02-22] MEDS: DexAMETHasone SOD PHOS 10MG/1ML VIAL INJ IV SCH ×3 (06:28→21:39)
[2020-02-22] MEDS: InsuLIN REG 1unit/0.01ml Soln (100units/ml) SC SCH ×4 (06:29→21:56)
[2020-02-22] MEDS ORDERED: FUROSEMIDE 40 MG/4 ML VIAL IV ONE (10:00)
[2020-02-22] MEDS: PANTOPRAZOLE 40 MG/10 ML VIAL INJ IV SCH (10:24)
[2020-02-22] MEDS: CEFEPIME 1 GM in SODIUM CHL 0.9% 50 ML IV SCH ×2 (10:24→21:39)
[2020-02-22 10:40] LABS: INR 2.11 (0.9-1.15); Partial Thromboplastin Time 44.1 sec (23.0-31.2)
[2020-02-22 11:48] LABS: Basophils # (auto) 0 10 ^3/uL (0-0.2); Eosinophils # (auto) 0 10 ^3/uL (0-0.8); Hematocrit 23.4 % (36.0-46.0); Lymphocytes # (auto) 0.4 10 ^3/uL (0.4-5.4); Lymphocytes % (auto) 5.1 % (10.0-50.0); Mean Corpuscular Hemoglobin 33.5 pg (28.0-32.0); Mean Corpuscular Hgb Conc. 34.1 g/dL (32.0-36.0); Monocytes # (auto) 0.2 10 ^3/uL (0-1.3); Monocytes % (auto) 2.7 % (0.0-12.0); Neutrophils # (auto) 8.1 10 ^3/uL (1.6-8.6); Neutrophils % (auto) 92.2 % (37.0-80.0); Nucleated Red Blood Cells % 0.2 %; Platelet Count (auto) 39 10^3/uL (140-450); Red Blood Cells 2.39 10^6/uL (4.0-5.20); White Blood Cell 8.8 10^3/uL (4.4-10.8)
[2020-02-22 11:49] LABS: Red Cell Distribution Width 23.8 % (11.8-14.3)
[2020-02-22] MEDS: ONDANSETRON HCL 4 MG/2 ML VIAL IV PRN ×2 (17:06→21:40)
[2020-02-22] MEDS: MORPHINE SULF INJ 2 MG/ML SYRINGE 1ML IV PRN ×2 (17:06→21:40)
[2020-02-22] MEDS: BUDESONIDE (INHALATION) 180 MCG IH IN SCH ×2 (20:49→20:51)
[2020-02-23 05:14] LABS: Basophils # (auto) 0 10 ^3/uL (0-0.2); Basophils % (auto) 0.1 % (0.0-2.0); Eosinophils # (auto) 0 10 ^3/uL (0-0.8); Hemoglobin 8.7 g/dL (12.2-16.2); Lymphocytes # (auto) 0.3 10 ^3/uL (0.4-5.4); Lymphocytes % (auto) 2.8 % (10.0-50.0); Mean Corpuscular Hemoglobin 33.7 pg (28.0-32.0)
[2020-02-23 05:18] LABS: Mean Corpuscular Hgb Conc. 34.6 g/dL (32.0-36.0); Mean Corpuscular Volume 97.6 fL (80.0-100.0); Monocytes # (auto) 0.1 10 ^3/uL (0-1.3); Monocytes % (auto) 1.4 % (0.0-12.0); Neutrophils # (auto) 9.1 10 ^3/uL (1.6-8.6); Neutrophils % (auto) 95.7 % (37.0-80.0); Nucleated Red Blood Cells % 0.1 %; Platelet Count (auto) 28 10^3/uL (140-450); Red Blood Cells 2.57 10^6/uL (4.0-5.20); White Blood Cell 9.5 10^3/uL (4.4-10.8)
[2020-02-23] MEDS: DexAMETHasone SOD PHOS 10MG/1ML VIAL INJ IV SCH ×3 (05:33→22:35)
[2020-02-23 05:42] LABS: Albumin 2.2 g/dL (3.4-5.0); Calcium 6.2 mg/dL (8.5-10.1)
[2020-02-23 05:53] VITALS: BP 152/74
[2020-02-23 05:54] LABS: Red Cell Distribution Width 24.4 % (11.8-14.3)
[2020-02-23 05:55] LABS: BUN/Creatinine Ratio 27.6; Bilirubin, Total 4.5 mg/dL (0.2-1.0); CRP High Sensitivity 4.56 mg/dL (< 0.3); Total Protein 4.9 g/dL (6.4-8.2)
[2020-02-23] MEDS: ACCU-CHEK COMFORT CURVE STRIP VI SCH ×4 (06:26→22:48)
[2020-02-23] MEDS: InsuLIN REG 1unit/0.01ml Soln (100units/ml) SC SCH ×4 (06:26→22:55)
[2020-02-23] MEDS ORDERED: PPN PER PHARMACY 0 ML IV SCH (09:00)
[2020-02-23] MEDS ORDERED: SOD CHL 0.45% 1,000 ML IV SCH (09:30)
[2020-02-23] MEDS ORDERED: DOPamine 1600MCG/ML D5W 250 ML IV SCH (09:30)
[2020-02-23 09:35] VITALS: BP 123/48
[2020-02-23] MEDS: BUDESONIDE (INHALATION) 180 MCG IH IN SCH ×2 (10:00→22:00)
[2020-02-23 10:35] LABS: Magnesium 2.5 mg/dL (1.6-2.6)
[2020-02-23 10:41] LABS: Phosphorus 4.8 mg/dL (2.5-4.90); Pre Albumin 4.1 mg/dL (20.0-40.0)
[2020-02-23] MEDS ORDERED: TPN PER PHARMACY 0 ML IV SCH (10:45)
[2020-02-23] MEDS ORDERED: FUROSEMIDE 40 MG/4 ML VIAL IV ONE (10:45)
[2020-02-23] MEDS: CEFEPIME 1 GM in SODIUM CHL 0.9% 50 ML IV SCH ×2 (10:47→22:35)
[2020-02-23] MEDS: PANTOPRAZOLE 40 MG/10 ML VIAL INJ IV SCH (10:59)
[2020-02-23] MEDS: ALBUMIN 25% 100 ML IV SCH ×2 (12:06→18:43)
[2020-02-23 13:40] VITALS: BP 170/53
[2020-02-23] MEDS ORDERED: DEXTROSE (50%) 50ML SYRG IV PRN ×2 (14:15→14:30)
[2020-02-23] MEDS: DOPamine 1600MCG/ML D5W 250 ML IV SCH (14:34)
[2020-02-23] MEDS: OCTREOTIDE ACETATE 100 MCG/ML VL SUBCUT SCH ×2 (15:04→22:36)
[2020-02-23 18:20] VITALS: BP 115/38
[2020-02-23] MEDS ORDERED: TPN PER PHARMACY IV NR ×7 (20:00)
[2020-02-23] MEDS: MORPHINE SULF INJ 2 MG/ML SYRINGE 1ML IV PRN (20:40)
[2020-02-23] MEDS: ONDANSETRON HCL 4 MG/2 ML VIAL IV PRN (20:40)
[2020-02-23 22:20] VITALS: BP 146/67
[2020-02-24] MEDS ORDERED: DEXTROSE (50%) 50ML SYRG IV SCH
[2020-02-24] MEDS: MORPHINE SULF INJ 2 MG/ML SYRINGE 1ML IV PRN ×5 (00:41→13:51)
[2020-02-24 02:30] VITALS: BP 162/51
[2020-02-24] MEDS: ACCU-CHEK COMFORT CURVE STRIP VI SCH ×3 (02:32→12:45)
[2020-02-24] MEDS: InsuLIN REG 1unit/0.01ml Soln (100units/ml) SC SCH ×3 (02:38→12:52)
[2020-02-24] MEDS: ALBUMIN 25% 100 ML IV SCH (03:35)
[2020-02-24 06:16] LABS: Basophils # (auto) 0 10 ^3/uL (0-0.2); Eosinophils # (auto) 0 10 ^3/uL (0-0.8); Lymphocytes # (auto) 0.2 10 ^3/uL (0.4-5.4); Monocytes # (auto) 0.1 10 ^3/uL (0-1.3); Nucleated Red Blood Cells % 0.1 %
[2020-02-24 06:18] LABS: Hematocrit 23.1 % (36.0-46.0); Hemoglobin 7.9 g/dL (12.2-16.2); Lymphocytes % (auto) 2.3 % (10.0-50.0); Mean Corpuscular Hemoglobin 34.3 pg (28.0-32.0); Mean Corpuscular Hgb Conc. 34.1 g/dL (32.0-36.0); Mean Corpuscular Volume 100.7 fL (80.0-100.0); Neutrophils % (auto) 96.7 % (37.0-80.0); Platelet Count (auto) 25 10^3/uL (140-450); Red Blood Cells 2.29 10^6/uL (4.0-5.20); White Blood Cell 9.3 10^3/uL (4.4-10.8)
[2020-02-24] MEDS: OCTREOTIDE ACETATE 100 MCG/ML VL SUBCUT SCH ×2 (06:25→17:14)
[2020-02-24] MEDS: DexAMETHasone SOD PHOS 10MG/1ML VIAL INJ IV SCH ×2 (06:25→17:14)
[2020-02-24 06:34] LABS: Potassium 4.3 mmol/L (3.5-5.1)
[2020-02-24 06:37] LABS: Red Cell Distribution Width 24.9 % (11.8-14.3)
[2020-02-24 06:47] LABS: Albumin 2.9 g/dL (3.4-5.0); BUN/Creatinine Ratio 29.5; Calcium 7.1 mg/dL (8.5-10.1); Magnesium 2.8 mg/dL (1.6-2.6); Phosphorus 4.7 mg/dL (2.5-4.90); Total Protein 5.1 g/dL (6.4-8.2)
[2020-02-24 07:15] VITALS: BP 141/43
[2020-02-24] MEDS ORDERED: LABETALOL HCL 5 MG/ML 4ML SYRINGE IV PRN (09:00)
[2020-02-24] MEDS: PANTOPRAZOLE 40 MG/10 ML VIAL INJ IV SCH (10:15)
[2020-02-24] MEDS: CEFEPIME 1 GM in SODIUM CHL 0.9% 50 ML IV SCH (10:39)
[2020-02-24] MEDS ORDERED: hydrALAZINE HCL 20 MG/ML VL IV PRN (11:30)
[2020-02-24] MEDS ORDERED: FUROSEMIDE 100 MG/10ML VIAL IV ONE (11:30)
[2020-02-24] MEDS: DOPamine 1600MCG/ML D5W 250 ML IV SCH (12:58)
[2020-02-24] MEDS: BUDESONIDE (INHALATION) 180 MCG IH IN SCH (12:58)
[2020-02-24] MEDS ORDERED: MORPHINE SULF INJ 2 MG/ML SYRINGE 1ML ONE (13:50)
[2020-02-24 15:30] VITALS: BP 156/56
[2020-02-24] MEDS ORDERED: LORazepam 2MG/ML-1ML VIAL IV PRN (17:00)
[2020-02-24] MEDS ORDERED: MORPHINE SULF INJ 2 MG/ML SYRINGE 1ML IV SCH (17:00)
[2020-02-24] MEDS ORDERED: TPN*HIGH CONC* PER PHARMACY IV NR ×7 (20:00)
[2020-02-25] MEDS ORDERED: FUROSEMIDE 40 MG/4 ML VIAL IV SCH (10:00)
== END 2020-02-24 17:27 | DRG 871 ==
LOC: EDBD 00:45 → ER 00:47 → TELE 00:48
PROVIDERS: ADMIT Nurse Practitioner; ATTEND Internal Medicine
PROC: 06H033Z Insertion of Infusion Device into Inferior Vena Cava, Percutaneous Approach (ICD-10-PCS; 2020-02-19)
PROC: 5A09557 Assistance with Respiratory Ventilation, Greater than 96 Consecutive Hours, Continuous Positive Airway Pressure (ICD-10-PCS; 2020-02-19)
PROC: XW13325 Transfusion of Convalescent Plasma (Nonautologous) into Peripheral Vein, Percutaneous Approach, New Technology Group 5 (ICD-10-PCS; principal; 2020-02-21)
PROC: 30233N1 Transfusion of Nonautologous Red Blood Cells into Peripheral Vein, Percutaneous Approach (ICD-10-PCS; 2020-02-21)
PROC: 30233R1 Transfusion of Nonautologous Platelets into Peripheral Vein, Percutaneous Approach (ICD-10-PCS; 2020-02-22)
DX: A41.89 Other specified sepsis (principal); U07.1 COVID-19; G93.41 Metabolic encephalopathy; J12.89 Other viral pneumonia; J96.01 Acute respiratory failure with hypoxia; N17.0 Acute kidney failure with tubular necrosis; E43 Unspecified severe protein-calorie malnutrition; R65.21 Severe sepsis with septic shock; D65 Disseminated intravascular coagulation [defibrination syndrome]; D61.818 Other pancytopenia; K76.6 Portal hypertension; E87.2 Acidosis; Z66 Do not resuscitate; D64.9 Anemia, unspecified; K74.60 Unspecified cirrhosis of liver; N18.30 Chronic kidney disease, stage 3 unspecified; E11.65 Type 2 diabetes mellitus with hyperglycemia; Z68.28 Body mass index [BMI] 28.0-28.9, adult; E11.22 Type 2 diabetes mellitus with diabetic chronic kidney disease; E78.5 Hyperlipidemia, unspecified; F03.90 Unspecified dementia, unspecified severity, without behavioral disturbance, psychotic disturbance, mood disturbance, and anxiety; R00.1 Bradycardia, unspecified; I12.9 Hypertensive chronic kidney disease with stage 1 through stage 4 chronic kidney disease, or unspecified chronic kidney disease; Z51.5 Encounter for palliative care; Z90.49 Acquired absence of other specified parts of digestive tract
CPT/HCPCS: 36415; 36600; 51702; 71045; 80053; 80320; 81001; 82040; 82140; 82553; 82570; 82728; 82805; 82962; 83605; 83615; 83735; 83880; 83935; 84100; 84133; 84156; 84300; 84478; 84484; 85025; 85379; 85384; 85610; 85652; 85730; 86141; 86850; 86900; 86901; 86920; 87040; 87086; 87426; 93005; 94660; 96365; 96366; 96367; 96368; 99291; C9113; G0378; J1100; J1815; J2405; J2543; J3490; P9047